=== PATIENT | male | born 1985 | race African-American/Black ===

== ENCOUNTER 2018-01-08 09:41 | Outpatient (CLI) | payer BC ==
--- NOTE | 2018-01-08 11:30 | RAD ---
CHEST TWO VIEWS: History: Pre op. FINDINGS: Heart size and mediastinum within normal limits. The lungs are clear of any infiltrative process. No significant bony findings. IMPRESSION: No active intrathoracic disease. POS: [facility]
--- NOTE | 2018-01-08 12:28 | ULT ---
ABDOMEN ULTRASOUND: Date: 01/08/18 HISTORY: Preoperative exam. Patient is scheduled for bariatric surgery. COMPARISON: None. TECHNIQUE: Utilizing a multihertz transducer, sonographic imaging of the abdomen is performed in the longitudina l and transverse plane. FINDINGS: Limited evaluation due to body habitus. The head of the pancreas has a normal echotexture. The remainder of the pancreas is obscured. Limited evaluation of the IVC and aorta. Increased echogenicity of the liver due to hepatic steatosis and/or hepatocellular disease. Limited e valuation of the liver margins. The exact dimensions of the liver cannot be adequately assessed. Common bile duct diameter is 0.5 cm. Limited evaluation of the gallbladder. No evidence of cholelithiasis or cholecystitis. Bilaterally, no hydronephrosis. Limited evaluation of the cortical echotextures of the kidneys. Maxim um dimension of the right kidney is 13.5 cm. Maximum dimension of the left kidney is 13.2 cm. Spleen measures 10.0 cm in maximum dimension. IMPRESSION: Limited evaluation due to body habitus. No gross intra-abdominal abnormality. POS: [facility]
== END 2018-01-08 09:42 | disposition home or self-care (01) ==
LOC: SCSULT 09:41
PROVIDERS: ATTEND Family Medicine
DX: Z01.818 Encounter for other preprocedural examination (principal); Z71.3 Dietary counseling and surveillance
CPT/HCPCS: 71046; 76700